=== PATIENT | female | born 1955 | race Caucasian/White ===

== ENCOUNTER 2018-07-29 17:38 | Emergency (ER) | payer OTHER ==
[2018-07-29] MEDS ORDERED: IPRATROPIUM/ALBUTEROL 3 ML NEB INH STA (18:44)
--- NOTE | 2018-07-29 18:52 | ED Physician Documentation ---
PD HPI URI - Stated complaint Stated Complaint: SOA - Chief complaint Chief Complaint: Resp - History obtained from History obtained from: Patient, Family - History of Present Illness Timing - onset: How many days ago (several) Timing duration: Days Timing details: Gradual onset Pain level max: 0 Pain level now: 0 Associated symptoms: Nasal congestion, Rhinorrhea, Dry cough, Dyspnea. No: Fever, Chills Contributing factors: Travel (visiting from [place]) Improves by: Rest Worsened by: Activity, Breathing - Additional information Additional information: Patient is a 62-year-old female with a history of pulmonary embolism in 2011 and again in March. She is maintained on Eliquis. Has never had a breakthrough pulmonary embolism. PE's were 2/2 tamoxifen Review of Systems Constitutional: denies: Fever, Chills Nose: reports: Rhinorrhea / runny nose, Congestion Throat: denies: Sore throat Cardiac: denies: Chest pain / pressure Respiratory: reports: Dyspnea, Cough GI: denies: Abdominal Pain, Nausea, Vomiting, Diarrhea Skin: denies: Rash Musculoskeletal: denies: Neck pain, Back pain Neurologic: denies: Headache PD PAST MEDICAL HISTORY - Past Medical History Past Medical History: Yes Cardiovascular: Hypertension, High cholesterol Respiratory: Other (PE) - Past Surgical History Past Surgical History: Yes /CATEGORY SPECIALIST: Mastectomy - Present Medications Home Medications: Ambulatory Orders Medication Instructions Recorded Confirmed Albuterol Sulf [Ventolin Hfa 1 - 2 puffs INH Q4HR PRN #1 inhaler 07/29/18 Inhaler] Apixaban [Eliquis] 5 mg PO BID 07/29/18 07/29/18 Atorvastatin Calcium [Lipitor] 80 mg PO QPM 07/29/18 07/29/18 Benzonatate [Tessalon Perle] 100 - 200 mg PO TID PRN #30 capsule 07/29/18 Cetirizine HCl/Pseudoephedrine 1 each PO BID PRN #30 tab.er.12h 07/29/18 [Zyrtec-D Tablet] Diltiazem HCl [Diltiazem ER] 180 mg PO DAILY 07/29/18 07/29/18 predniSONE [Prednisone] 40 mg PO DAILY #10 tablet 07/29/18 - Allergies Allergies/Adverse Reactions: Allergies Allergy/AdvReac Type Severity Reaction Status Date / Time docetaxel [From Taxotere] AdvReac Rash Verified 07/29/18 17:53 - Living Situation Living Situation: reports: With family Living Arrangement: reports: At home - Social History Does the pt smoke?: No Does the pt have substance abuse?: No - Family History Family history: reports: Non contributory PD ED PE NORMAL - Vitals Vital signs reviewed: Yes - General General: Alert and oriented X 3, No acute distress, Well developed/nourished - HEENT HEENT: Ears normal, Moist mucous membranes, Pharynx benign - Neck Neck: Supple, no meningeal sign - Cardiac Cardiac: RRR - Respiratory Respiratory: No respiratory distress, Other (Diminished breath sounds bilaterally) - Abdomen Abdomen: Soft, Non tender, Non distended - Back Back: No spinal TTP - Derm Derm: Warm and dry - Extremities Extremities: No edema, No calf tenderness / cord - Neuro Neuro: Alert and oriented X 3 Results - Vitals Vitals: Vital Signs - 24 hr 07/29/18 17:48 Temperature 36.6 C Heart Rate 79 Respiratory 20 Rate Blood Pressure 140/86 H O2 Saturation 97 Oxygen O2 Source Room air - EKG (time done) 1747 Rate: Rate (enter#) (80) Rhythm: NSR [place]: LAD Intervals: Normal [place] QRS: Normal Ischemia: Non specific changes - Rads (name of study) cxr Radiology: Prelim report reviewed, EMP read contemporaneously, See rad report (no acute abnormality) PD MEDICAL DECISION MAKING - ED course Complexity details: reviewed results, re-evaluated patient, considered differential, d/w patient, d/w family ED course: Patient is a 62-year-old female who presents with what appears to be a viral URI with wheezing. Feels better after steroids and nebulizer treatment. No evidence of breakthrough PE clinically. We will have her maintain her Eliquis and prescribe an inhaler and steroids for home. She is well-appearing, nontoxic. No tachycardia or hypoxia. No respiratory distress. Patient c ounseled regarding signs and symptoms for which I believe and urgent re- evaluation would be necessary. Patient with good understanding of and agreement to plan and is comfortable going home at this time This document was made in part using voice recognition software. While efforts are made to proofread this document, sound alike and grammatical errors may occur. - Sepsis Event Vital Signs: Vital Signs - 24 hr 07/29/18 17:48 Temperature 36.6 C Heart Rate 79 Respiratory 20 Rate Blood Pressure 140/86 H O2 Saturation 97 Oxygen O2 Source Room air Departure - Departure Disposition: 01 Home, Self Care Clinical Impression: Upper respiratory tract infection Qualifiers: URI type: unspecified viral URI Qualified Code(s): J06.9 - Acute upper respiratory infection, unspecified Condition: Good Instructions: ED Viral Syndrome Follow-Up: your,doctor in 1week [Other] Prescriptions: Albuterol Sulf [Ventolin Hfa Inhaler] 1 - 2 puffs INH Q4HR PRN #1 inhaler PRN Reason: Shortness Of Air/Wheezing Benzonatate [Tessalon Perle] 100 - 200 mg PO TID PRN #30 capsule PRN Reason: Cough Cetirizine HCl/Pseudoephedrine [Zyrtec-D Tablet] 1 each PO BID PRN #30 tab.er.12h PRN Reason: Nasal Congestion predniSONE [Prednisone] 40 mg PO DAILY #10 tablet Comments: Continue to use your other medications at home. Use the inhaler as needed for difficulty breathing. Return if you worsen. Discharge Date/Time: 07/29/18 21:00
[2018-07-29] MEDS ORDERED: predniSONE 20 MG TABLET PO STA (19:25)
[2018-07-29] MEDS ORDERED: BENZONATATE 100 MG CAPSULE PO STA (19:26)
--- NOTE | 2018-07-29 19:35 | XRAY Report ---
Reason: cough, dyspnea Procedure Date: 07/29/2018 Accession Number: [id number] / [id number] Procedure: XR - Chest 2 View X-Ray CPT Code: 57647 FULL RESULT: EXAM: CHEST RADIOGRAPHY EXAM DATE: 07/29/2018 07:11 PM. CLINICAL HISTORY: Cough, dyspnea. COMPARISON: None. TECHNIQUE: 2 views. FINDINGS: Lungs/Pleura: No focal opacities evident. No pleural effusion. No pneumothorax. Normal volumes. Mediastinum: There is mild cardiomegaly with thoracic aortic tortuosity and calcification. Other: None. IMPRESSION: No acute intrathoracic plain film abnormality. [facility]
[2018-07-29 20:12] LABS: BASOPHILS # (AUTO) 0.1 10^3/uL (0.0-0.1); BASOPHILS % (AUTO) 0.6 %; EOSINOPHILS # (AUTO) 0.6 10^3/uL (0.0-0.7); EOSINOPHILS % (AUTO) 4.7 %; HGB - HEMOGLOBIN 12.8 g/dL (12.0-16.0); LYMPHOCYTES # (AUTO) 2.9 10^3/uL (1.5-3.5); LYMPHOCYTES % (AUTO) 23.7 %; MEAN CORPUSCULAR HEMOGLOBIN 29.1 pg (27.0-31.0); MEAN CORPUSCULAR HGB CONC 32.9 g/dL (32.0-36.0); MEAN CORPUSCULAR VOLUME 88.6 fL (81.0-99.0); MEAN PLATELET VOLUME 8.7 fL (7.9-10.8); MONOCYTES # (AUTO) 0.6 10^3/uL (0.0-1.0); MONOCYTES % (AUTO) 5.2 %; NEUTROPHILS # (AUTO) 8.1 10^3/uL (1.5-6.6); NEUTROPHILS % (AUTO) 65.8 %; PLT - PLATELET COUNT 255 10^3/uL (130-450); RED BLOOD COUNT 4.39 10^6/uL (4.20-5.40); RED CELL DISTRIBUTION WIDTH 13.9 % (12.0-15.0); WHITE BLOOD COUNT 12.4 x10^3/uL (4.8-10.8)
[2018-07-29] MEDS ORDERED: ALBUTEROL NEB 2.5 MG/3 ML INH STA (20:21)
[2018-07-29 20:36] LABS: ALBUMIN 3.8 g/dL (3.2-5.5); ALBUMIN/GLOBULIN RATIO 1.2 (1.0-2.2); BILIRUBIN,TOTAL 0.4 mg/dL (0.2-1.0); CALCIUM 8.8 mg/dL (8.5-10.3); TOTAL PROTEIN 6.9 g/dL (6.7-8.2)
[2018-07-29 20:51] VITALS: BP 124/72
== END 2018-07-29 21:00 | disposition home or self-care (01) ==
LOC: ED 17:38
DX: J06.9 Acute upper respiratory infection, unspecified (principal); I10 Essential (primary) hypertension; Z86.711 Personal history of pulmonary embolism; Z79.01 Long term (current) use of anticoagulants
CPT/HCPCS: 71046; 80053; 83690; 85025; 94640; 94664; 99283; A9270; J7512